=== PATIENT | female | born 1970 | race Caucasian/White ===

== ENCOUNTER 2022-03-23 01:09 | Emergency (ER) | payer BC ==
[2022-03-23 01:45] LABS: Basophils % (A) 0 %; Eosinophils # (A) 0.2 k/uL (0-0.7); Eosinophils % (A) 2 %; HGB 13.4 gm/dL (11.4-16.0); Lymphocytes # (A) 1.6 k/uL (1.0-4.8); Lymphocytes % (A) 12 %; MCH 32.3 pg (25.0-35.0); MCHC 33.5 g/dL (31.0-37.0); MCV 96.3 fL (80.0-100.0); Mean Platelet Volume 6.7; Monocytes # (A) 0.4 k/uL (0-1.0); Monocytes % (A) 3 %; Neutrophils # (A) 10.8 k/uL (1.3-7.7); Neutrophils % (A) 83 %; Platelet Count 407 k/uL (150-450); RBC 4.16 m/uL (3.80-5.40); WBC 13.1 k/uL (3.8-10.6)
[2022-03-23 02:01] LABS: INR 0.9 (<1.2); Partial Thromboplastin Time 22.3 sec (22.0-30.0); Prothrombin Time 9.7 sec (9.0-12.0)
[2022-03-23 02:03] LABS: ALT 47 U/L (4-34); AST 35 U/L (14-36); African American GFR (CKD) >90 (>60 ml/min/1.73 sqM); Albumin 4.1 g/dL (3.5-5.0); Alkaline Phosphatase 138 U/L (38-126); Anion Gap 9 mmol/L; Blood Urea Nitrogen 14 mg/dL (7-17); Calcium 9.4 mg/dL (8.4-10.2); Carbon Dioxide 28 mmol/L (22-30); Chloride 101 mmol/L (98-107); Glucose 175 mg/dL (74-99); Magnesium 1.9 mg/dL (1.6-2.3); Non-African American GFR(CKD) >90 (>60 ml/min/1.73 sqM); Potassium 4.6 mmol/L (3.5-5.1); Sodium 138 mmol/L (137-145); Total Bilirubin 0.3 mg/dL (0.2-1.3); Total Protein 6.9 g/dL (6.3-8.2)
[2022-03-23] MEDS ORDERED: ASPIRIN 325 MG TAB PO STA (02:07)
[2022-03-23] MEDS ORDERED: MORPHINE SULFATE 2 MG/ML SYRINGE IVP STA ×2 (02:07→02:56)
--- NOTE | 2022-03-23 02:36 | ED ---
Chest Pain HPI <Aroldo Ha - Last Filed: 03/23/22 04:17> - General Source: patient, RN notes reviewed Mode of arrival: ambulatory Limitations: no limitations - History of Present Illness MD Complaint: chest pain Onset: during rest Pain Location: substernal Pain Radiation: LUE, neck Quality: dull Improves With: nothing <Pauly Little - Last Filed: 03/24/22 03:44> - General Chief Complaint: Chest Pain Stated Complaint: Chest Pain Time Seen by Provider: 03/23/22 01:30 - History of Present Illness Initial Comments: This is a 51-year-old female who presents to the emergency department for chest pain. Patient states that earlier today, she had an episode of chest pain radiating into the left neck/shoulder. She then became diaphoretic. The diaphoresis has not resolved, however she continues to have dull pain in the center of her chest. She took Ibuprofen with no relief. She had a similar episode last week, which she attributed to musculoskeletal pain and was not evaluated at that time. She does have a history of open heart surgery 3-4 years ago for an aortic mass. This was done in [place], where the patient currently alok . She is currently here on vacation. Denies any shortness of breath. Denies any fevers, chills, sore throat, cough, dyspnea, palpitations, abdominal pain, nausea, vomiting, diarrhea, back pain, or headaches. (Pauly Little) - Related Data Previous Rx's Medication Instructions Recorded methocarbamoL [Robaxin-750] 750 mg PO QID #30 tab 03/23/22 Allergies Allergy/AdvReac Type Severity Reaction Status Date / Time diltiazem [From Cardizem] Allergy Rash/Hives Verified 03/23/22 01:16 sulfamethoxazole Allergy Anaphylaxis Verified 03/23/22 01:16 [From Bactrim] trimethoprim [From Bactrim] Allergy Anaphylaxis Verified 03/23/22 01:16 azithromycin AdvReac Vomiting Verified 03/23/22 01:16 nitrofurantoin AdvReac Nausea & Verified 03/23/22 01:16 [From Macrobid] Vomiting & Diarrhea Review of Systems ROS Other: All systems not noted in ROS Statement are negative. <Aroldo Ha - Last Filed: 03/23/22 04:17> ROS Other: All systems not noted in ROS Statement are negative. <Pauly Little - Last Filed: 03/24/22 03:44> ROS Statement: Those systems with pertinent positive or pertinent negative responses have been documented in the HPI. Past Medical History Past Medical History: Diabetes Mellitus, Hyperlipidemia, Thyroid Disorder History of Any Multi-Drug Resistant Organisms: None Reported Additional Past Surgical History / Comment(s): mass on aorta Past Psychological History: No Psychological Hx Reported Smoking Status: Never smoker Past Alcohol Use History: Occasional Past Drug Use History: None Reported <Pauly Little - Last Filed: 03/24/22 03:44> General Exam Limitations: no limitations General appearance: alert, in no apparent distress Head exam: Present: atraumatic, normocephalic, normal inspection Respiratory exam: Present: normal lung sounds bilaterally. Absent: respiratory distress, wheezes, rales, rhonchi, stridor Cardiovascular Exam: Present: regular rate, normal rhythm, normal heart sounds. Absent: systolic murmur, diastolic murmur, rubs, gallop, clicks Neurological exam: Present: alert, oriented X3, CN II-XII intact Psychiatric exam: Present: normal affect, normal mood Skin exam: Present: warm, dry, intact, normal color. Absent: rash <Pauly Little - Last Filed: 03/24/22 03:44> Course Vital Signs 03/23/22 03/23/22 03/23/22 01:13 03:13 04:30 Temperature 97.8 F 98.1 F Pulse Rate 75 79 78 Respiratory 18 18 16 Rate Blood Pressure 112/75 100/70 101/69 O2 Sat by Pulse 100 98 98 Oximetry Chest Pain [facility] <Aroldo Ha - Last Filed: 03/23/22 04:17> <Pauly Little - Last Filed: 03/24/22 03:44> - [facility] I did have a fairly prolonged discussion with the patient and her friend at the bedside. I explained the rationale for admission in relation to chest pain and diaphoresis. At this point patient states she is feeling better and is declining to be admitted for serial cardiac enzymes and monitoring. She does agree to return if symptoms are recurring if there is any new symptom or if she is not feeling right. She will follow-up with her physician. (Aroldo Ha) This is a 51-year-old female presents emergency department for chest pain. Patient noted to have an elevated white blood cell count. Troponin was negative. Case signed out to Dr. Ha, ED attending. (Pauly Little) Disposition <Aroldo Ha - Last Filed: 03/23/22 04:17> Is patient prescribed a controlled substance at d/c from ED?: No <Pauly Little - Last Filed: 03/24/22 03:44> Clinical Impression: Chest pain Disposition: HOME SELF-CARE Instructions (If sedation given, give patient instructions): Chest Pain (ED) Additional Instructions: Return to the emergency department with any new, worsening, or concerning symptoms. Follow up with your primary care provider in 1-2 days. Prescriptions: methocarbamoL [Robaxin-750] 750 mg PO QID #30 tab Referrals: Nonstaff,Physician [Primary Care Provider] - 1-2 days
[2022-03-23] MEDS ORDERED: KETOROLAC 15 MG/ML 1 ML VIAL IVP STA (02:56)
--- NOTE | 2022-03-23 03:48 | XR ---
EXAM: XR Chest, 2 Views CLINICAL HISTORY: ITS.REASON XR Reason: Chest Pain TECHNIQUE: Frontal and lateral views of the chest. COMPARISON: No relevant prior studies available. FINDINGS: Lungs: No consolidation or mass. Pleural space: No effusion. Heart: No cardiomegaly. Bones/joints: No acute findings. IMPRESSION: No acute cardiopulmonary process.
[2022-03-23] MEDS ORDERED: DIAZEPAM 5 MG/ML 2 ML INJ IVP STA (03:59)
[2022-03-23 04:31] VITALS: BP 101/69; PULSE 78; RESP 16; TEMP 98.1
== END 2022-03-23 04:30 | disposition home or self-care (01) ==
LOC: EC 01:09
DX: R07.89 Other chest pain (principal); E11.9 Type 2 diabetes mellitus without complications; E07.9 Disorder of thyroid, unspecified; E78.5 Hyperlipidemia, unspecified; Z79.899 Other long term (current) drug therapy; Z88.2 Allergy status to sulfonamides; Z88.6 Allergy status to analgesic agent; Z88.8 Allergy status to other drugs, medicaments and biological substances
CPT/HCPCS: 36415; 93005; 80053; 83735; 84484; 85025; 85610; 85730; 71046; 99285; 96374; 96375; 96376; J3360; J2270; J1885